=== PATIENT | female | born 1990 | race Caucasian/White ===

== ENCOUNTER 2023-10-01 12:16 | Emergency (ER) | payer OTHER ==
[2023-10-01 12:26] VITALS: BP 119/80; PULSE 79; RESP 18; TEMP 98.2; BMI 20.5
[2023-10-01] MEDS ORDERED: ONDANSETRON 4 MG/2 ML VIAL ONE (13:23)
[2023-10-01] MEDS: SODIUM CHLORIDE 1,000 ML IV STA (13:24)
[2023-10-01] MEDS: ONDANSETRON 4 MG/2 ML VIAL IVPUSH ONE (13:24)
[2023-10-01 13:29] LABS: URINE APPEARANCE CLEAR; URINE BILIRUBIN NEGATIVE (NEGATIVE); URINE COLOR YELLOW; URINE GLUCOSE (UA) NEGATIVE (NEGATIVE); URINE KETONE NEGATIVE (NEGATIVE); URINE LEUK ESTERASE NEGATIVE (NEGATIVE); URINE NITRITE NEGATIVE (NEGATIVE); URINE PROTEIN NEGATIVE (NEGATIVE); URINE UROBILINOGEN 0.2 mg/dL (0.2-1.0)
[2023-10-01 13:41] LABS: BASO % 0.3 % (0-2.0); EOS % 1.6 % (0-4.5); HEMATOCRIT 43.2 % (32.4-45.2); HEMOGLOBIN 14.1 GM/dL (10.7-15.3); LYMPH % 25.5 % (8-40); MCH 31.2 pg (25.7-33.7); MCHC 32.7 g/dl (32.0-36.0); MEAN CELL VOLUME 95.3 fl (80-96); MEAN PLT VOLUME 9.2 fl (7.5-11.1); MONO % 4.2 % (3.8-10.2); NEUT % 68.4 % (42.8-82.8); PLATELET COUNT 273 10^3/uL (134-434); RBC 4.53 M/mm3 (3.60-5.2); RDW 13.2 % (11.6-15.6); WHITE BLOOD COUNT 9.8 K/mm3 (4.0-10.0)
[2023-10-01 14:02] LABS: POTASSIUM 4.8 mmol/L (3.5-5.1)
[2023-10-01 14:05] LABS: ALBUMIN 4.4 g/dl (3.4-5.0); BLOOD UREA NITROGEN 15.6 mg/dL (7-18); CALCIUM 9.6 mg/dL (8.5-10.1)
[2023-10-01 14:10] LABS: BILIRUBIN,TOTAL 0.8 mg/dL (0.2-1)
[2023-10-01 14:11] LABS: TOT PROT 8.3 g/dl (6.4-8.2)
[2023-10-01 14:18] LABS: CREATININE 0.9 mg/dL (0.55-1.3)
== END 2023-10-01 14:52 | disposition home or self-care (01) ==
LOC: JER 12:16
PROC: 3E033NZ Introduction of Analgesics, Hypnotics, Sedatives into Peripheral Vein, Percutaneous Approach (ICD-10-PCS; principal; 2023-10-01)
PROC: 3E0337Z Introduction of Electrolytic and Water Balance Substance into Peripheral Vein, Percutaneous Approach (ICD-10-PCS; 2023-10-01)
DX: R42 Dizziness and giddiness (principal); R11.0 Nausea
CPT/HCPCS: 36415; 80053; 81003; 82010; 82962; 85025; 87086; 93005; 93010; 99284-25